=== PATIENT | male | born 1995 | race African-American/Black ===

== ENCOUNTER 2019-01-15 18:49 | Emergency (ER) | payer SELFPAY ==
[~2019-01-15] VITALS: Ht 182.9 cm; Wt 59.1 kg
[2019-01-15 18:52] VITALS: Ht 182.9 cm; Wt 59.1 kg
[2019-01-15 19:29] LABS: BASOPHILS 0.2 % (0-2); EOSINOPHILS 0.7 % (0-7); HEMATOCRIT 44.4 % (42.0-54.0); HEMOGLOBIN 16.1 g/dL (13.5-17.5); IMMATURE GRANULOCYTES 0.2 % (0-5); LYMPHOCYTES 22.7 % (15-50); MCH 33.8 pg (26.0-34.0); MCHC 36.3 g/dL (31.0-37.0); MCV 93.3 fL (80.0-100.0); MEAN PLATELET VOLUME 10.6 fL (7.4-10.4); MONOCYTES 9.7 % (2-11); NEUTROPHILS 66.5 % (40-80); PLATELET COUNT 172 10x3/uL (130-400); RBC 4.76 10x6/uL (4.20-6.10); RDW 13.6 % (11.5-14.5); WBC 5.4 10x3/uL (4.8-10.8)
[2019-01-15 19:52] LABS: ALBUMIN 4.3 g/dL (3.4-5.0); ALKALINE PHOSPHATASE 114 U/L (46-116); ALT (SGPT) 52 U/L (10-68); BILIRUBIN - TOTAL 1.88 mg/dL (0.2-1.3); CALC OSMOLALITY 269 mosm/kg (275-300); CALCIUM 9.7 mg/dL (8.5-10.1); CARBON DIOXIDE 27.1 mmol/L (21.0-32.0); CHLORIDE - SERUM 96 mmol/L (98-107); CREATININE - SERUM 1.2 mg/dL (0.6-1.3); POTASSIUM - SERUM 3.5 mmol/L (3.5-5.1); SODIUM 137 mmol/L (136-145); UREA NITROGEN 8 mg/dL (7-18); eGFR NON AFRICAN AMERICAN 78 mL/min (90-120)
[2019-01-15 19:54] LABS: GLUCOSE 71 mg/dL (74-106)
[2019-01-15 20:02] LABS: LIPASE 137 U/L (73-393); MAGNESIUM - SERUM 1.8 mg/dL (1.8-2.4); THYROID STIMULATING HORMONE 2.55 uIU/mL (0.36-3.74)
[2019-01-15 21:11] LABS: UDS - AMPHET POSITIVE QUAL (NEGATIVE); UDS - BARB NEGATIVE QUAL (NEGATIVE); UDS - BENZO NEGATIVE QUAL (NEGATIVE); UDS - COCAINE NEGATIVE QUAL (NEGATIVE); UDS - OPIATE NEGATIVE QUAL (NEGATIVE); UDS - PCP NEGATIVE QUAL (NEGATIVE); UDS - THC POSITIVE QUAL (NEGATIVE)
[2019-01-15 21:22] LABS: APPEARANCE CLEAR (CLEAR); BILIRUBIN NEGATIVE (NEGATIVE); COLOR DK YELLOW (YELLOW); GLUCOSE NEGATIVE (NEGATIVE); KETONE MODERATE mg/dL (NEGATIVE); NITRITE NEGATIVE (NEGATIVE); PROTEIN 1+ mg/dL (NEGATIVE)
[2019-01-15 21:23] LABS: BACTERIA FEW /hpf (NONE SEEN); MUCUS <1+ /lpf (NONE SEEN); WHITE CELLS - URINE 0-5 /hpf (0-5)
[2019-01-15 21:46] VITALS: BP 144/89
== END 2019-01-15 21:40 | disposition home or self-care (01) ==
LOC: D.ER 18:49
PROVIDERS: Family Medicine
DX: R11.2 Nausea with vomiting, unspecified (principal)

== ENCOUNTER 2019-01-16 01:44 | Emergency (ER) | payer SELFPAY ==
[~2019-01-16] VITALS: Ht 182.9 cm; Wt 59.1 kg
[2019-01-16 01:47] VITALS: Ht 182.9 cm; Wt 59.1 kg
[2019-01-16 03:07] VITALS: BP 141/91
== END 2019-01-16 03:08 | disposition home or self-care (01) ==
LOC: D.ER 01:44
DX: S00.03XA Contusion of scalp, initial encounter (principal); W18.30XA Fall on same level, unspecified, initial encounter; Y93.89 Activity, other specified; Y92.89 Other specified places as the place of occurrence of the external cause